=== PATIENT | female | born 1965 | race Caucasian/White ===

== ENCOUNTER 2016-08-05 11:06 | Emergency (ER) | payer OTHER | END 2016-08-05 12:06 | disposition home or self-care (01) | LOC: ER 11:06 | DX: S30.861A Insect bite (nonvenomous) of abdominal wall, initial encounter (principal); S70.362A Insect bite (nonvenomous), left thigh, initial encounter; S80.862A Insect bite (nonvenomous), left lower leg, initial encounter; W57.XXXA Bitten or stung by nonvenomous insect and other nonvenomous arthropods, initial encounter; Z88.8 Allergy status to other drugs, medicaments and biological substances | CPT/HCPCS: 99282 ==